=== PATIENT | female | born 1970 | race African-American/Black ===

== ENCOUNTER 2024-10-05 22:34 | Emergency (ER) | payer BC, OTHER ==
[~2024-10-05] VITALS: Ht 165.1 cm; Wt 127.0 kg
[~2024-10-05 22:34] MED LIST: LISI1TAB13; OXYC-90
[2024-10-05 22:44] VITALS: TEMP 36.9
[2024-10-05] MEDS: ALBUTEROL (0.083%) 2.5MG/3ML NEB HHN ONE (23:25)
[2024-10-05 23:27] VITALS: PULSE 88; RESP 20; O2SAT 97
[2024-10-06] MEDS: PREDNISONE 20MG TABLET PO ONE (00:18)
[2024-10-06 01:19] VITALS: PULSE 90; RESP 18; O2SAT 96
[2024-10-06] MEDS: ALBUTEROL (0.083%) 2.5MG/3ML NEB HHN ONE (01:19)
[2024-10-06] MEDS: IPRATROPIUM BROMIDE (0.02%) 0.5MG/2.5ML NEB HHN ONE (01:19)
[2024-10-06] MEDS ORDERED: FURO-152 MT (01:32)
[2024-10-06] MEDS ORDERED: AZIT250T12 MT (01:32)
[2024-10-06] MEDS ORDERED: P50 PO (01:32)
[2024-10-06] MEDS ORDERED: ALBU18HF2 IH (01:32)
[2024-10-06 02:40] VITALS: BP 176/99; PULSE 103; RESP 18; O2SAT 95
== END 2024-10-06 02:40 | disposition home or self-care (01) ==
LOC: ER 22:34
DX: J45.901 Unspecified asthma with (acute) exacerbation (principal); E78.00 Pure hypercholesterolemia, unspecified; I10 Essential (primary) hypertension; Z79.52 Long term (current) use of systemic steroids; Z79.899 Other long term (current) drug therapy; Z98.890 Other specified postprocedural states; Z88.5 Allergy status to narcotic agent; Z88.0 Allergy status to penicillin; Z88.2 Allergy status to sulfonamides
CPT/HCPCS: 99284; 71045; 94640 ×2; J7512

== ENCOUNTER 2025-02-01 00:20 | Emergency (ER) | payer BC, MEDICAID ==
[~2025-02-01] VITALS: Ht 157.5 cm; Wt 91.0 kg
[~2025-02-01 00:20] MED LIST changes: +ALBU18HF2 IH; +AM100 MT; +AZIT250T12 MT; +CRAN450T10 MT; +CYCL25PO15 MT; +FURO-152 MT; +KETO60VI IM; +P50 PO; +QUET400T MT
[2025-02-01 00:35] VITALS: TEMP 36.9; O2SAT 98
[2025-02-01] MEDS: KETOROLAC 30MG/ML VIAL IV STA (03:21)
[2025-02-01 04:01] LABS: BASOPHILS % 0.3 % (0.0-2.0); EOSINOPHILS % 1.4 % (0.0-5.0); HEMATOCRIT. 39.8 % (36.0-48.0); HEMOGLOBIN. 13.1 g/dL (12.0-16.0); LYMPHOCYTES % 15.8 % (20.0-50.0); MEAN PLATELET VOLUME 6.8 fl (7.4-10.4); MONOCYTES % 6.6 % (2.0-8.0); NEUTROPHILS % 75.9 % (40.0-76.0); PLATELET 289 x1000/uL (130-400); RED BLOOD CELL COUNT 4.38 mill/uL (4.2-5.4); RED CELL DISTRIBUTION WIDTH 14.7 % (11.6-14.6)
[2025-02-01 04:12] LABS: CREATININE 1.0 mg/dL (0.6-1.0); UREA NITROGEN BLOOD 12 mg/dL (9-23)
[2025-02-01 04:13] LABS: TROPONIN I HIGH SENSITIVITY 8 ng/L (3.0-34)
[2025-02-01] MEDS: METHOCARBAMOL 500MG TABLET PO NR (04:40)
[2025-02-01 04:44] VITALS: BP 158/95; PULSE 94; RESP 20; O2SAT 100
== END 2025-02-01 05:20 | disposition home or self-care (01) ==
LOC: ER 00:20 → EDBEDREQ 02:20 → ER 05:20
DX: R07.89 Other chest pain (principal); M79.10 Myalgia, unspecified site; R06.02 Shortness of breath; I25.2 Old myocardial infarction; I10 Essential (primary) hypertension; Z88.5 Allergy status to narcotic agent; Z88.2 Allergy status to sulfonamides; Z88.0 Allergy status to penicillin; Z79.899 Other long term (current) drug therapy
CPT/HCPCS: 99285; 96374; 71045; 80048; 83880; 85025; 84484; 36415; 93005; J1885; A4606

== ENCOUNTER 2025-04-05 00:14 | Emergency (ER) | payer BC, MEDICAID ==
[~2025-04-05] VITALS: Ht 165.1 cm; Wt 136.0 kg
[~2025-04-05 00:14] MED LIST changes: +ASPI-1406 PO; +ATOR20TA MT; -AZIT250T12 MT; -CRAN450T10 MT; +CYCL10TA21 PO; -CYCL25PO15 MT; -KETO60VI IM; +LISI10TA26 PO; -LISI1TAB13; -OXYC-90; -P50 PO
[2025-04-05 00:24] VITALS: TEMP 36.7; O2SAT 99
[2025-04-05 01:13] LABS: BASOPHILS % 0.2 % (0.0-2.0); EOSINOPHILS % 3.0 % (0.0-5.0); HEMATOCRIT. 43.8 % (36.0-48.0); HEMOGLOBIN. 14.1 g/dL (12.0-16.0); LYMPHOCYTES % 15.6 % (20.0-50.0); MEAN PLATELET VOLUME 7.1 fl (7.4-10.4); MONOCYTES % 4.9 % (2.0-8.0); NEUTROPHILS % 76.3 % (40.0-76.0); PLATELET 326 x1000/uL (130-400); RED BLOOD CELL COUNT 4.67 mill/uL (4.2-5.4); RED CELL DISTRIBUTION WIDTH 14.2 % (11.6-14.6)
[2025-04-05 01:14] LABS: CREATININE 1.1 mg/dL (0.6-1.0)
[2025-04-05 01:15] LABS: ETHANOL BLOOD < 10 mg/dL (<10); UREA NITROGEN BLOOD 11 mg/dL (9-23)
[2025-04-05 01:16] LABS: ASPARTATE AMINOTRANSFERASE 14 IU/L (<34); BILIRUBIN DIRECT 0.1 mg/dL (<=3.0); TROPONIN I HIGH SENSITIVITY 8 ng/L (3.0-34)
[2025-04-05 01:17] LABS: BILIRUBIN TOTAL 0.4 mg/dL (0.1-1.0); PROTEIN TOTAL 8.6 g/dL (6.0-8.3)
[2025-04-05 01:23] LABS: INR 1.0
[2025-04-05] MEDS ORDERED: MAG355OR21 MT (04:19)
[2025-04-05] MEDS: VISCOUS LIDOCAINE 2% 15 ML UDC MM ONE (04:40)
[2025-04-05] MEDS: MAGNESIUM/ALUMINUM HYDROXIDE/SIMETHICONE 30ML UDC PO ONE (04:40)
[2025-04-05] MEDS: CYCLOBENZAPRINE 10MG TABLET PO PRN (05:16)
[2025-04-05 05:17] VITALS: BP 148/95; PULSE 100; RESP 15; O2SAT 99
[2025-04-08] MEDS ORDERED: LORA-250 MT (12:30)
[2025-04-08] MEDS ORDERED: HYDR-4001 MT (12:31)
[2025-04-12] MEDS ORDERED: P20 MT (12:29)
[2025-04-12] MEDS ORDERED: LEVO-65 MT (12:31)
[2025-04-13] MEDS ORDERED: FURO-152 MT (12:50)
[2025-04-13] MEDS ORDERED: LISI10TA26 PO (12:50)
[2025-04-13] MEDS ORDERED: ATOR20TA MT (12:50)
[2025-04-13] MEDS ORDERED: ALBU18HF2 IH (12:50)
[2025-04-13] MEDS ORDERED: AM100 MT (12:50)
[2025-04-13] MEDS ORDERED: ASPI-1406 PO (12:50)
== END 2025-04-05 05:30 | disposition home or self-care (01) ==
LOC: ER 00:14 → CMPBEDREQ 04-06 07:38
DX: R00.2 Palpitations (principal); J44.9 Chronic obstructive pulmonary disease, unspecified; I25.2 Old myocardial infarction; I10 Essential (primary) hypertension; F20.9 Schizophrenia, unspecified; Z79.899 Other long term (current) drug therapy; Z79.52 Long term (current) use of systemic steroids; Z88.5 Allergy status to narcotic agent; Z88.2 Allergy status to sulfonamides; Z88.0 Allergy status to penicillin; Z79.82 Long term (current) use of aspirin
CPT/HCPCS: 36415; 71045; 80048; 80076; 80320; 83735; 83880; 84484; 85025; 93005; 99285; G0480